=== PATIENT | female | born 1985 | race African-American/Black ===

== ENCOUNTER 2017-06-24 13:00 | Inpatient (IN) | payer OTHER ==
[~2017-06-24] VITALS: Ht 160 cm; Wt 103.0 kg
--- NOTE | ~2017-06-24 | HP ---
Unit #: [id number] #: [id number] Patient: SHALONDA ALBARRAN [id number] [place] [address] [id number] I MR#: [id number] NAME: SHALONDA ALBARRAN ROOM: 74 Age: 32 Sex: F Admission Date: 06/24/2017 : 1985 Attending Physician: Lizbeth Adams M.D. Admitting Physician: Lizbeth Adams M.D. HISTORY AND PHYSICAL HISTORY OF PRESENT ILLNESS Patient is a 32-year-old female admitted to [address] [place] [address] on 06/24/2017 for suicidal ideations. PAST MEDICAL HISTORY 1. Obesity. 2. Seizures. 3. Asthma. 4. Migraines. 5. Self-inflicted wounds on her arm. PAST SURGICAL HISTORY Tonsils and adenoids. SOCIAL HISTORY She is employed at [employer]. She lives with her father. She drinks alcohol occasionally and has a history of daily cocaine use. FAMILY MEDICAL HISTORY Noncontributory. ALLERGIES Reglan, Topamax, Imitrex and Dilaudid. CURRENT MEDICATIONS 1. Klonopin 2. Venlafaxine 3. Ambien 4. Lamictal 5. Fioricet 6. Keppra REVIEW OF SYSTEMS CONSTITUTIONAL: No fever or chills. HEENT: Denies any sore throat, ear pain or runny nose. CARDIOVASCULAR: Denies chest pain, irregular heart rhythm or palpitations. CHEST: Denies shortness of breath or cough. No hemoptysis. GASTROINTESTINAL: Denies nausea, vomiting, diarrhea or chronic constipation. ENDOCRINE: Denies history of increased thirst or urination. No recent significant weight loss or gain. GENITOURINARY: Denies dysuria, frequency, or hematuria. SKIN: Denies any rashes. Unit #: [id number] #: [id number] Patient: SHALONDA ALBARRAN HEMATOLOGIC: Denies history of increased bleeding or bruising. MUSCULOSKELETAL: Denies any hot, swollen joints. No generalized muscle pain. NEUROLOGIC: Denies problems with vision or speech. No frequent, severe headaches. No numbness, tingling or weakness in any extremities. Denies loss of bladder or bowel control. PHYSICAL EXAM GENERAL: She is awake, alert and oriented in no acute distress. VITAL SIGNS: Temperature 98.6, heart rate 106, respiration 16, blood pressure 128/83. HEIGHT: 5 foot 3. WEIGHT: 227 pounds. SKIN: Multiple self-inflicted wounds on her left upper and left lower arm. HEENT: Normocephalic. TMs not viewed. Oral and nasal passages clear. Conjunctivae clear. PERRLA. EOMs intact. NECK: Supple without lymphadenopathy or thyromegaly. HEART: Regular rate and rhythm without murmur. LUNGS: Clear. ABDOMEN: Soft, nontender. : Not done. EXTREMITIES: No evidence of cyanosis, clubbing or edema. Moves all without focal deficit. NEUROLOGICAL: Grossly within normal limits. Cranial Nerves: II: Visual green are intact. III, IV AND : Extraocular movements are intact. Pupils are equal, round and reactive to light. V: Facial sensation is grossly normal. VII: Facial movements and expression are normal. VIII: Auditory acuity grossly intact. IX, X: Uvula is midline. Phonation is normal. XI: Patient shrugs shoulders and turns head normally. XII: Tongue protrudes in the midline. Sensory and Motor Function: Sensory and motor sensation is grossly normal. Motor: moves all extremities well. IMPRESSION 1. Psychiatric admission. 2. Obesity. 3. Seizures. 4. Asthma. 5. Migraines. 6. Self-inflicted wounds. RECOMMENDATIONS Psychiatric per psychiatrist. MEDICAL: No contraindication to participate in facility activities. MEDICAL PROGNOSIS Good. MEDICAL CONDITION Stable. Unit #: [id number] #: [id number] Patient: SHALONDA ALBARRAN Dictated by... Dianne Kirkland/anil TD: 06/26/2017 01:14 JOB #: [id number] HISTORY AND PHYSICAL Page 1 of 1 X ADONAY WARD APRN HISTORY AND PHYSICAL
--- NOTE | ~2017-06-24 | PA ---
Unit #: [id number] #: [id number] Patient: SHALONDA PONCE [id number] [facility] [address] [place] [address] [id number] I MR#: [id number] NAME: SHALONDA PONCE ROOM: P174 Age: 32 Sex: F Admission Date: 06/24/2017 : 1985 Date of Assessment: 06/24/2017 Attending Physician: Lizbeth Adams M.D. Admitting Physician: Lizbeth Adams M.D. PSYCHIATRIC ASSESSMENT DATE OF SERVICE 06/24/2017. IDENTIFYING DATA Ms. Ponce is a 32-year-old single female, who is a resident of [place], [place], and was brought to the hospital accompanied by her father. CHIEF COMPLAINT "Last night, I took a razor blade and cut myself several times." HISTORY OF PRESENT ILLNESS Ms. Ponce is a 32-year-old female with known history of mood disorder, who was taken to the hospital by her father with increasing depression and self-harming behavior, attempting suicide by taking a razor and cutting herself several times and stated that she cut herself with a razor several times and after she cut herself, she poured alcohol over the cuts and put a bandage over them and stated that after cutting herself, she fell asleep and stated that she is under a tremendous amount of depression since her recent divorce and she just got [place] a couple of months ago and stated that her life has been stressful. She states that her 10-year-old son is having a hard time adjusting after the divorce and that she cut herself last Monday after her best friend told her that she no longer wanted to be friends with her and that particular friend was the only friend she had and since then, she has been distraught and stated that she cut herself so deep that she had to have stitches and she had a history of suicidal ideations and behavior since her teenage years and does report some increasing depression, feelings of hopelessness and helplessness, and suicidal ideations and as such, recommendation for inpatient level of care for safety and stabilization was made. The patient was transferred to us. SUBSTANCE ABUSE HISTORY The patient reports daily use of crack cocaine for 3 years, but has not used any in the last 12 years and currently, denies any substance abuse issues. PAST PSYCHIATRIC HISTORY The patient has had history of inpatient and outpatient psychiatric treatment. Review of the medical records indicated that she has been diagnosed and treated for mood disorder. She is currently on Klonopin, Effexor, Lamictal, and Ambien, but does not appear to be showing a therapeutic response. It is not clear if she has been compliant with Unit #: [id number] #: [id number] Patient: SHALONDA PONCE medications. PAST MEDICAL HISTORY Asthma, seizure disorder. ALLERGIES Reglan, Topamax, Imitrex, and Dilaudid. PERSONAL AND SOCIAL HISTORY This is a 32-year-old female, who reports that she is and lives at home with her family and is currently unemployed, and a fairly descent social support system. MENTAL STATUS EXAMINATION This is a young female, who was casually dressed with fair personal hygiene, appears to be in no acute distress or discomfort. She was awake and alert on interaction with intact orientation to time, place, and person. Her mood was anxious and depressed with congruent affect. Her speech was slow and restricted in content. Her thought processes were disorganized with some looseness of associations and flight of ideas. Her insight and judgment remain significantly impaired. DIAGNOSTIC IMPRESSION Psychiatric: Major depressive disorder, recurrent, moderate, without psychotic features; generalized anxiety disorder; borderline personality disorder. Medical: None. Stressors: Moderate psychosocial stressors. TREATMENT PLAN 1. The patient has presented with history of mood disorder, has been decompensating and will need inpatient hospitalization for safety and stabilization. We will start her back on her home medications and we will adjust the medications and monitor response. 2. Supportive therapy was provided to the patient. 3. Safe, structured, and nourishing environment will be provided. ESTIMATED LENGTH OF STAY 4 to 5 days. ABILITY TO HELP SELF Limited. WILLINGNESS TO HELP SELF The patient appears to be willing to help self. STRENGTHS 1. Communicative. 2. Cooperative. PROBLEMS 1. Chronic dysphoric symptoms. 2. Poor social support system. DISCHARGE CRITERIA This will be contingent upon the patient's ability to show resolution of her depression and anxiety and her ability to stay safe to herself, particularly after discharge from the hospital. Unit #: [id number] #: [id number] Patient: SHALONDA PONCE Dictated by... Shira Rivera/frandy TD: 06/25/2017 13:52 JOB #: [id number] PSYCHIATRIC ASSESSMENT Page 1 of 1 X Lizbeth Adams MD PSYCHIATRIC ASSESSMENT
--- NOTE | ~2017-06-24 | DS ---
Unit #: [id number] #: [id number] Patient: SHALONDA ALBARRAN [id number] [place] [address] [id number] I MR#: [id number] NAME: SHALONDA ALBARRAN ROOM: [facility] Age: 32 Sex: F Admission Date: 06/24/2017 : 1985 Discharge Date: 06/29/2017 Attending Physician: Lizbeth Adams M.D. DISCHARGE SUMMARY ADDENDUM Ms. Simental was scheduled to be discharged on 06/27/2017; however, she stated that she was not feeling safe and comfortable and therefore, discharge planning was cancelled and she was maintained on her medication and Effexor was increased to 150 mg a day. However, it was noticed that the patient has been exhibiting significant med seeking behavior particularly wanting more and more benzodiazepines and has ordered being on Klonopin and then has been asking for Xanax or Ativan and with no further adjustments being made in her medication, it was decided she will be discharged home and will continue treatment on an outpatient basis. DISCHARGE MEDICATIONS Effexor XR 150 mg b.i.d. DISCHARGE CONDITION Stable. PROGNOSIS Fair. Dictated by... Shira Rivera/frandy TD: 06/29/2017 07:15 JOB #: [id number] DISCHARGE SUMMARY Page 1 of 1 X Lizbeth Adams MD X DISCHARGE SUMMARY
--- NOTE | ~2017-06-24 | PN ---
Unit #: [id number] #: [id number] Patient: SHALONDA PONCE [id number] [facility] [address] [place] [address] [id number] I MR#: [id number] NAME: SHALONDA PONCE ROOM: 76 Age: 32 Sex: F Admission Date: 06/24/2017 : 1985 Attending Physician: Lizbeth Adams M.D. Admitting Physician: Shira Rivera PROGRESS NOTES DATE OF SERVICE 06/28/2017 DISCUSSION Ms. Ponce is a 32-year-old female who was seen today. Chart was reviewed and case was discussed with the staff. She remains anxious, withdrawn, and rather seclusive to herself. Meanwhile, she has been cooperative with the treatment recommendations and has been taking the medications and tolerating them fairly well with no reported side effects. MENTAL STATUS EXAMINATION Young female who is casually dressed with fair personal hygiene, appears to be in no acute distress or discomfort. She was awake and alert with impaired attention and concentration. Her mood is anxious and depressed with congruent affect. She reports having suicidal ideations but denies any homicidal ideations. Her insight and judgment remain slightly impaired. TREATMENT PLAN 1. We will continue her on her current medications and treatment protocol. We will monitor her response to the medications and make further adjustments as needed. 2. We will continue to follow up. Dictated by... Lizbeth Adams M.D. IAA/bzg TD: 06/28/2017 10:42 JOB #: [id number] Unit #: [id number] #: [id number] Patient: SHALONDA PONCE PROGRESS NOTES Page 1 of 1 X Lizbeth Adams MD X PROGRESS NOTE
--- NOTE | ~2017-06-24 | PN ---
Unit #: [id number] #: [id number] Patient: SHALONDA PONCE [id number] [facility] [address] [place] [address] [id number] I MR#: [id number] NAME: SHALODNA PONCE ROOM: 76 Age: 32 Sex: F Admission Date: 06/24/2017 : 1985 Attending Physician: Lizbeth Adams M.D. Admitting Physician: Shira Rivera PROGRESS NOTES DATE 06/26/2017 DISCUSSION Ms. Ponec is a 32-year-old female who was seen today and chart was reviewed and case was discussed with the staff. She has been anxious, withdrawn though reports doing much better and has been showing improvement in her depressive symptoms though reports doing much better and has been showing improvement in her depressive symptoms. She has been compliant with treatment recommendations as she has been taking the medications and tolerating them fairly well with no reported side effects. MENTAL STATUS EXAMINATION Young female who was casually dressed with fair personal hygiene, appears to be in no acute distress or discomfort. She was awake and alert with intact orientation. Her mood was anxious with congruent affect. She denies any suicidal or homicidal ideations. Also, denies any auditory or visual hallucinations. Her insight and judgement remains slightly impaired. TREATMENT PLAN 1. We will continue her on her current medications and treatment protocol. We will monitor her response to medication and make further adjustments as needed. 2. We will continue to follow up. Dictated by... Shira Rivera/anil TD: 06/27/2017 05:30 JOB #: [id number] Unit #: [id number] #: [id number] Patient: SHALONDA PONCE PROGRESS NOTES Page 1 of 1 X Lizbeth Adams MD PROGRESS NOTE
--- NOTE | ~2017-06-24 | DS ---
Unit #: [id number] #: [id number] Patient: [facility]ARRAN [id number] [facility] [place] [address] [id number] I MR#: [id number] NAME: SHALONDA ALBARRAN ROOM: 76 Age: 32 Sex: F Admission Date: 06/24/2017 : 1985 Discharge Date: 06/27/2017 Attending Physician: Lizbeth Adams M.D. DISCHARGE SUMMARY IDENTIFYING DATA Ms. Albarran is a 32-year-old female, who was self-referred to the hospital. DISCHARGE DIAGNOSES Psychiatric: Major depressive disorder, recurrent, moderate, without psychotic features. Medical: Seizure disorder and migraine headaches. Stressors: Mild psychosocial stressors. HISTORY OF PRESENT ILLNESS Please see initial psychiatric evaluation for details. PAST PSYCHIATRIC HISTORY Please see initial psychiatric evaluation for details. PAST MEDICAL HISTORY Please see initial psychiatric evaluation for details. HOSPITAL COURSE The patient was [facility] and was oriented to the hospital environment. Routine p.r.n. medications were initiated, and she was started back on her home medications including her Effexor and Klonopin and was closely monitored. She was taking the medications regularly and was tolerating them fairly well and was able to show a decent and therapeutic response. Followed by which, it was decided that she will be discharged home and will continue treatment on an outpatient basis. DISCHARGE MEDICATIONS Effexor XR 75 mg at bedtime and 150 mg in the morning for depression, Ambien 5 mg at bedtime for sleep, Klonopin 0.5 mg in the morning for anxiety, Lamictal 100 mg at bedtime for seizure disorder, Keppra 500 mg in the morning and 1000 mg at bedtime for seizure disorder, and Klonopin 1 mg at 6:00 p.m. for anxiety. DISCHARGE CONDITION Stable. PROGNOSIS Fair. Dictated by... Unit #: [id number] #: [id number] Patient: SHALONDA ALBARRAN Shira Rivera/frandy TD: 06/27/2017 07:25 JOB #: [id number] DISCHARGE SUMMARY Page 1 of 1 X Lizbeth Adams MD DISCHARGE SUMMARY
--- NOTE | ~2017-06-24 | CO ---
Unit #: [id number] #: [id number] Patient: SHALONDA ALBARRAN [id number] [place] [address] [id number] I MR#: [id number] NAME: SHALONDA ALBARRAN ROOM: [facility] Age: 32 Sex: F Admission Date: 06/24/2017 : 1985 Attending Physician: Lizbeth Adams M.D. Consultation Date: 06/25/2017 CONSULTATION REPORT Ordering provider is Dr. Adams. REASON FOR CONSULT Sutures in right arm. SUBJECTIVE The patient reports that she committed self-harm and cut herself on her left upper and left lower arm. She went to the hospital where she received sutures. The sutures were placed over a week ago and she is ready to have them out. OBJECTIVE Multiple sutures noted on left wrist and left upper arm. The incisions in the knee appear to be intact and without drainage or infection. ASSESSMENT Sutures. PLAN To have a suture kit removal, brought to the unit and the nurses can remove, may use Neosporin as needed. Dictated by... Dianne Kirkland/frandy TD: 06/25/2017 20:13 JOB #: [id number] CONSULTATION REPORT Page 1 of 1 X ADONAY WARD APRN X CONSULTATION REPORT
[2017-06-25 13:23] LABS: BILIRUBIN,TOTAL 0.2 mg/dL (0.2-2.0); BUN/CREATININE RATIO 7.77; CALCIUM SERUM 9.6 mg/dL (8.4-10.2); CREATININE SERUM 0.9 mg/dL (0.6-1.4); GLOM FILT RATE Estimated 98.1 mL/min (>60); POTASSIUM 4.1 mmol/L (3.5-5.1)
[2017-06-25 14:00] LABS: BASOPHIL# 0.1 X10e3 (0-0.3); BASOPHIL% 0.7 % (0-2.5); EOSINOPHIL# 0.1 X10e3 (0-0.7); EOSINOPHIL% 0.9 % (0.0-7.0); HEMATOCRIT 31.2 % (35.0-45.0); HEMOGLOBIN 9.6 gm/dL (12.0-16.0); LYMPHOCYTE# 2.3 X10e3 (1.0-3.5); LYMPHOCYTE% 19.4 % (17.0-45.0); MEAN CELL VOLUME 69.4 FL (83-96); MEAN CORPUSCULAR HEMOGLOBIN 21.4 PG (28-34); MEAN CORPUSCULAR HGB CONC 30.8 g/dL (30-36); MEAN PLATELET VOLUME 8.2 FL (6.5-11.5); MONOCYTE% 8.2 % (3.0-12.0); NEUTROPHIL# 8.4 X10e3 (1.5-7.1); NEUTROPHIL% 70.8 % (40-75); PLATELET COUNT 441 X10e3 (140-420); RED CELL DISTRIBUTION WIDTH 18.9 % (11.0-15.5); WHITE BLOOD COUNT 11.9 X10e3 (4.0-10.5)
[2017-06-25 14:03] LABS: DIFF IND NO
[2017-06-29 10:11] LABS: URINE BILIRUBIN NEG (NEG); URINE BLOOD NEG (NEG); URINE COLOR YELLOW; URINE GLUCOSE NORM (NORM); URINE KETONE NEG (NEG); URINE LEUKOCYTE ESTERASE 3+ (NEG); URINE NITRATE NEG (NEG); URINE PROTEIN NEG (NEG); URINE SPECIFIC GRAVITY 1.025 (1.003-1.035); URINE UROBILINOGEN NORM (NORM)
[2017-06-29 10:20] LABS: URINE APPEARANCE TURBID
[2017-06-29 10:36] LABS: URINE AMORPHOUS SEDIMENT AMORP URATES; URINE SQUAMOUS EPITHELIAL CELL MODERATE /[HPF]
[2017-06-29 10:37] LABS: URBCS1 AUWI 0-2 /[HPF] (0-2); URINE BACTERIA AUWI NEG (NEGATIVE)
[2017-06-29 11:03] LABS: AMPHETAMINE NEG (NEG); BARBITURATES POS (NEG); BENZODIAZEPINES POS (NEG); COCAINE NEG (NEG); MARIJUANA NEG (NEG); OPIATES NEG (NEG); TRICYCLIC ANTIDEPRESSANTS POS (NEG); U METHADONE NEG (NEG)
== END 2017-06-29 17:27 | DRG 885 ==
LOC: P1E 16:18 → P2S 16:18 → P1E 06-25 06:47
PROVIDERS: Psychiatry & Neurology Psychiatry
DX: F33.1 Major depressive disorder, recurrent, moderate (principal); G40.909 Epilepsy, unspecified, not intractable, without status epilepticus; E66.9 Obesity, unspecified; F41.1 Generalized anxiety disorder; F60.3 Borderline personality disorder; J45.909 Unspecified asthma, uncomplicated; Z56.0 Unemployment, unspecified; X78.8XXD Intentional self-harm by other sharp object, subsequent encounter; G43.909 Migraine, unspecified, not intractable, without status migrainosus
CPT/HCPCS: 80053; 80307; 81003; 84703; 85025